=== PATIENT | female | born 1995 | race Caucasian/White ===

== ENCOUNTER 2016-12-20 16:10 | Emergency (ER) | payer BC ==
[~2016-12-20] VITALS: Ht 177.8 cm; Wt 77.1 kg
[2016-12-20 17:00] VITALS: BP 133/76
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
[2016-12-20] MEDS ORDERED: traMADol 50 MG TABLET PO ONE (17:30)
[2016-12-20] MEDS ORDERED: IBUPROFEN 800 MG TABLET. PO ONE (17:30)
[2016-12-20] MEDS ORDERED: TETANUS AND DIPHTHERIA TOX/PF 0.5 ML DISP.SYRIN. VAX IM ONE (17:30)
[2016-12-20] MEDS ORDERED: DIPHTH,PERTUSS(ACELL),TET TOX 0.5 ML DISP.SYRIN. VAX IM ONE (17:45)
[2016-12-20] MEDS ORDERED: silver sulfADIAZINE 1% CREAM 25GM TUBE. TP ONE ×2 (17:50→18:00)
[2016-12-20] MEDS ORDERED: SILV20CR14 TP (17:53)
== END 2016-12-20 18:47 | disposition home or self-care (01) ==
LOC: ER 16:10
DX: S50.812A Abrasion of left forearm, initial encounter (principal); S80.812A Abrasion, left lower leg, initial encounter; S60.512A Abrasion of left hand, initial encounter; S70.212A Abrasion, left hip, initial encounter; V18.4XXA Pedal cycle driver injured in noncollision transport accident in traffic accident, initial encounter; Y93.55 Activity, bike riding; Y92.828 Other wilderness area as the place of occurrence of the external cause; Y99.8 Other external cause status
CPT/HCPCS: 90471; 90715; 99284-25